=== PATIENT | female | born 2000 | race Caucasian/White ===

== ENCOUNTER 2021-06-12 17:44 | Emergency (ER) | payer MEDICAID ==
[~2021-06-12] VITALS: Ht 162.6 cm; Wt 53.5 kg
[2021-06-12 18:10] VITALS: BP_SYST 112
--- NOTE | 2021-06-12 20:31 | NUR ---
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
== END 2021-06-12 20:31 | disposition left against medical advice (07) ==
LOC: SED 17:44
DX: N93.9 Abnormal uterine and vaginal bleeding, unspecified (principal); Z53.21 Procedure and treatment not carried out due to patient leaving prior to being seen by health care provider